=== PATIENT | female | born 1975 | race Two or more races ===

== ENCOUNTER 2018-03-22 00:53 | Emergency (ER) | payer MEDICAID ==
[~2018-03-22] VITALS: Ht 160 cm; Wt 75.9 kg
[2018-03-22] MEDS ORDERED: ZOLP10TA7 PO (01:05)
[2018-03-22] MEDS ORDERED: IBUP-2354 PO (01:05)
[2018-03-22] MEDS ORDERED: SENN-155 PO (01:05)
[2018-03-22] MEDS ORDERED: HYDR-4061 PO (01:05)
[2018-03-22] MEDS ORDERED: ESOM20CA31 PO (01:05)
[2018-03-22 02:15] LABS: BASOPHILS % (AUTO) 0.6 % (0.0-2.0); EOSINOPHILS % (AUTO) 3.1 % (1.0-6.0); HEMOGLOBIN 12.7 g/dL (12.0-16.0); LYMPHOCYTES # (AUTO) 2.9 K/uL (1.0-4.8); LYMPHOCYTES % (AUTO) 36.6 % (22.0-44.0); MEAN CORPUSCULAR HEMOGLOBIN 29.5 pg (26.0-34.0); MEAN CORPUSCULAR HGB CONC 34.3 G/dL (31.0-37.0); MEAN CORPUSCULAR VOLUME 86 fL (80-100); MONOCYTES # (AUTO) 0.6 K/uL (0.1-1.0); MONOCYTES % (AUTO) 7.2 % (2.0-9.0); NEUTROPHILS # (AUTO) 4.2 K/uL (1.8-7.7); NEUTROPHILS % (AUTO) 52.5 % (40.0-70.0); PLATELET COUNT (AUTO) 312 K/uL (150-450); RED BLOOD CELL COUNT(AUTO) 4.31 MIL/uL (4.00-5.20)
[2018-03-22 02:17] LABS: APPEARANCE,URINE CLEAR (CLEAR); BILIRUBIN,URINE NEGATIVE (NEGATIVE); GLUCOSE, URINE (UA) NEGATIVE (NEGATIVE); KETONES,URINE NEGATIVE (NEGATIVE); LEUKOCYTE ESTERASE ,URINE NEGATIVE (NEGATIVE); NITRATE,URINE NEGATIVE (NEGATIVE); OCCULT BLOOD,URINE NEGATIVE (NEGATIVE); PROTEIN,URINE NEGATIVE (NEGATIVE)
[2018-03-22 02:22] LABS: ANION GAP 8 mmol/L (8-16); CALCIUM, TOTAL 8.9 mg/dL (8.8-10.5); CARBON DIOXIDE 26 mmol/L (22-29); CHLORIDE 106 mmol/L (98-107); CREATININE 0.71 mg/dL (0.60-1.30); GLOMERULAR FILTR. RATE CALC > 60 mL/min (>60); GLUCOSE,RANDOM 96 mg/dL (70-110); POTASSIUM 3.7 mmol/L (3.5-5.1); SODIUM SERUM 140 mmol/L (136-145); UREA NITROGEN, BLOOD 18 mg/dL (7-18)
[2018-03-22 02:27] LABS: ALANINE AMINOTRANSFERASE 26 U/L (12-78); ALBUMIN 3.6 g/dL (3.4-5.0); ALKALINE PHOSPHATASE 93 U/L (46-116); ASPARTATE AMINOTRANSFERASE 15 U/L (15-37); BILIRUBIN,TOTAL 0.2 mg/dL (0.1-1.0); LIPASE 135 U/L (73-393); TOTAL PROTEIN, SERUM 7.6 g/dL (6.4-8.2)
[2018-03-22 02:46] VITALS: BP 126/70
== END 2018-03-22 03:22 | disposition home or self-care (01) ==
LOC: EMS 00:54
DX: K59.00 Constipation, unspecified (principal); K21.9 Gastro-esophageal reflux disease without esophagitis
CPT/HCPCS: 99284

== ENCOUNTER 2019-01-12 00:32 | Emergency (ER) | payer MEDICAID ==
[~2019-01-12] VITALS: Ht 160 cm; Wt 85.0 kg
[~2019-01-12 00:32] MED LIST: ESOM20CA31 PO; HYDR-4061 PO; IBUP-2354 PO; SENN-155 PO; ZOLP10TA7 PO
[2019-01-12] MEDS ORDERED: CEPHALEXIN MONOHYDRATE 500 MG CAPSULE PO ONE (01:45)
[2019-01-12] MEDS ORDERED: IBUPROFEN 800 MG TABLET PO ONE (01:45)
[2019-01-12] MEDS ORDERED: SULFAMETHOX/TRIMETH DS 800-160 MG/TABLET PO ONE (01:45)
[2019-01-12 02:09] VITALS: BP 116/65
== END 2019-01-12 03:23 | disposition home or self-care (01) ==
LOC: EMS 00:33
DX: L02.31 Cutaneous abscess of buttock (principal); F41.9 Anxiety disorder, unspecified; K21.9 Gastro-esophageal reflux disease without esophagitis

== ENCOUNTER 2024-07-12 15:40 | Emergency (ER) | payer MEDICAID ==
[~2024-07-12] VITALS: Ht 152.4 cm; Wt 95.0 kg
[~2024-07-12 15:40] MED LIST changes: -HYDR-4061 PO; -IBUP-2354 PO; +ZOLP-162 PO; -ZOLP10TA7 PO
[2024-07-12 15:49] VITALS: BP 115/70; PULSE 85; RESP 18; TEMP 98.2; O2SAT 98
[2024-07-12] MEDS ORDERED: DIPH-1243 PO (15:50)
[2024-07-12] MEDS ORDERED: CETIRIZINE HCL 10 MG TABLET PO ONE (19:30)
[2024-07-12] MEDS ORDERED: CETI-450 PO (19:37)
[2024-07-12] MEDS ORDERED: FAMO20 PO (19:37)
[2024-07-12] MEDS ORDERED: PRED-554 PO (19:37)
[2024-07-12] MEDS: PredniSONE 20 MG TABLET PO ONE (19:51)
[2024-07-12] MEDS: FAMOTIDINE 20 MG TABLET PO ONE (19:51)
== END 2024-07-12 20:44 | disposition home or self-care (01) ==
LOC: EMS 15:40
DX: L50.9 Urticaria, unspecified (principal); K21.9 Gastro-esophageal reflux disease without esophagitis
CPT/HCPCS: 99283; J7512